=== PATIENT | female | born 1995 | race Caucasian/White ===

== ENCOUNTER → 2017-06-12 10:33 | Outpatient (CLI) | payer BC, SELFPAY ==
[2017-06-12 11:18] LABS: Hematocrit 37.1 % (37-47); Hemoglobin 11.8 g/dl (12.0-15.0); Mean Corp Hgb Conc 31.8 g/gl (32-36); Mean Corpuscular Hgb 24.5 pg (27.0-32.0); Mean Corpuscular Volume 77.1 fL (81-99); Mean Platelet Vol. 9.8 fl (6.2-12.0); Platelet Count 492 K/mm3 (150-450); RBC Distribution Width CV 15.2 % (11.6-14.6); RBC Distribution Width SD 41.9 fl (35.1-43.9); Red Blood Count 4.81 M/mm3 (4.2-5.4); White Blood Count 10.5 K/mm3 (4.4-11.0)
[2017-06-12 11:22] LABS: Scan Indicated on CBC? Y/N NO
[2017-06-12 11:47] LABS: Hemoglobin A1c 6.8 % (4.2-6.3)
[2017-06-12 11:50] LABS: hCG Titer Quant., Serum < 1 mIU/mL (<9 non-preg)
[2017-06-12 11:57] LABS: Progesterone Level 0.03 ng/mL (See Comment)
[2017-06-12 12:10] LABS: Estradiol 33.8 pg/mL; Follicle Stimulating Hormone 4.5 mIU/mL; Free T3 2.9 pg/mL (2.18-3.98); Luteinizing Hormone 10.7 mIU/mL; T4 Free Direct 0.98 ng/dL (0.76-1.46); Thyroid Stim Hormone (TSH) 1.82 uIU/mL (0.358-3.74)
[2017-06-13 14:08] LABS: Thyroid Peroxidase AB 14 IU/mL (0-34)
[2017-06-13 15:52] LABS: Thyroglobulin Antibody < 1.0 IU/mL (0.0-0.9)
[2017-06-16 11:55] LABS: HPV Reflexed? NOT INDICATED
== END ==
PROVIDERS: Visit Provider Obstetrics & Gynecology
DX: Z12.4 Encounter for screening for malignant neoplasm of cervix (principal); N92.6 Irregular menstruation, unspecified
CPT/HCPCS: 36415; 82670; 83001; 83002; 83036; 84144; 84403; 84439; 84443; 84481; 84702; 85027; 86376; 86800; 88175; G0145

== ENCOUNTER → 2017-07-03 12:11 | Outpatient (CLI) | payer BC, SELFPAY ==
--- NOTE | 2017-07-03 12:40 | US_ITS ---
STUDY: PELVIC ULTRASOUND REASON FOR EXAM: Female, 21 years old. Abnormal cycle, possible polycystic ovarian syndrome. LMP: June 27, 2017. TECHNIQUE: Transabdominal and Transvaginal TECHNICAL QUALITY: Adequate. COMPARISON: None. FINDINGS: The uterus is anteverted and is in a midline position. The uterus measures 7.74 x 3.4 cm x 5.20 cm. Normal uterine cervix. The endometrium measures 10.5 mm in thickness, and is hyperechoic. There is no demonstrated endometrial mass. There is no demonstrated myometrial mass. I.U.D. - The patient does not have an I.U.D. The right ovary is visualized. The right ovary measures 6.53 x 3.1 x 3.32 cm. This includes a complex 3.39 x 2.13 x 2.37 cm structure with cystic components and possible adjacent small volume free fluid. There is no visualized right adnexal mass or complex lesion. There is normal arterial and normal venous vascularity. The left ovary is visualized. The left ovary measures 3.70 x 2.0 x 3.02 cm. There are multiple follicles of the left ovary without a dominant cyst. There is no visualized left adnexal mass or complex lesion. There is normal arterial and normal venous vascularity. There is minimal fluid in the cul-de-sac. The pre void volume of the bladder was 40 ml. US/Transvaginal w/Preg US IMPRESSION: 1. Complex 3.39 cm structure in the right ovary. This is likely a ruptured dominant follicle, but other pathology not excluded. Follow up immediately following the next 1-2 cycles suggested to document clearing. 2. Endometrial thickness is upper normal, likely physiologic. 3. Numerous follicular cysts in the left ovary, but not clearly pathognomonic of polycystic ovarian disease. 4. There is small volume free fluid in the cul-de-sac, and possible minimal fluid along the right ovary. Electronically Signed: Salty Turner MD at 16:48 EDT , Service support ,
== END ==
PROVIDERS: Visit Provider Obstetrics & Gynecology
DX: N93.8 Other specified abnormal uterine and vaginal bleeding (principal); N83.02 Follicular cyst of left ovary
CPT/HCPCS: 76817; 76856; 93976

== ENCOUNTER → 2017-07-14 08:44 | Outpatient (CLI) | payer BC, SELFPAY ==
[2017-07-14 11:26] LABS: hCG Titer Quant., Serum < 1 mIU/mL (<9 non-preg)
== END ==
PROVIDERS: Visit Provider Obstetrics & Gynecology
DX: N92.6 Irregular menstruation, unspecified (principal)
CPT/HCPCS: 36415; 84702

== ENCOUNTER → 2021-01-29 | Outpatient (CLI) | payer BC, SELFPAY ==
[2021-02-02 17:05] LABS: HPV Reflexed? NOT INDICATED
== END | disposition home or self-care (01) ==
LOC: LABSPEC 11:02
PROVIDERS: Visit Provider Obstetrics & Gynecology
DX: Z12.4 Encounter for screening for malignant neoplasm of cervix (principal)
CPT/HCPCS: 88175; G0145